=== PATIENT | female | born 1965 | race Caucasian/White ===

== ENCOUNTER → 2018-11-21 | Outpatient (CLI) | payer OTHER ==
--- NOTE | 2018-11-22 14:51 | RADIOLOGY REPORT (SQ) ---
EXAM DESCRIPTION: MRI HEAD COMBO COMPLETED DATE/TIME: 11/21/2018 5:49 pm REASON FOR STUDY: C71.9 MALIGNANT NEOPLASM OF BRAIN, UNSPECIFIED C71.9 MALIGNANT NEOPLASM OF BRAIN, UNSPECIFIED COMPARISON: Outside MRI images and radiology reports from 10/02/2017, 07/04/2018 in [facility]. TECHNIQUE: Multiplanar imaging includes noncontrasted T1, T2, FLAIR, diffusion with ADC map and post gadolinium contrast T1 sequences. Images stored on PACS. CONTRAST TYPE AND DOSE: 20 mL Dotarem. RENAL FUNCTION: Not needed. LIMITATIONS: None. FINDINGS: ANATOMY: No anomalies. Normal vascular flow voids. Pituitary fossa normal. CSF SPACES: Normal in size and contour. No hemorrhage. CEREBRUM: Extensive FLAIR and T2 hyperintense parenchymal edema in the right cerebrum. This involves the frontal, parietal, occipital and temporal lobes with extension across the posterior corpus callo sum into the left high parietal region. This has progressed when compared to the most recent prior s tudy. Progressive heterogeneously enhancing mass in the midst of the edema, main component measuring up to 5 x 2.6 x 4.8 cm AP by transverse by craniocaudal dimension. This is contiguous with abnormal enhancing tissue extending across the corpus callosum. There is mass effect on the right lateral ve ntricle with slight right to left shift on the order of 5 mm or so. POSTERIOR FOSSA: No signal alteration. No hemorrhage. No edema, masses, or mass effect. Internal roman tory canals, cerebellopontine angles, mastoids normal. No enhancing lesions. No abnormal enhancement post contrast. DIFFUSION IMAGING: Negative for acute or subacute infarction. ORBITS: No masses. Globes normal. PARANASAL SINUSES: No fluid levels. Mucosa normal. OTHER: No other significant finding. IMPRESSION: 1. Progression of disease. Right cerebral mass has enlarged. As before, there is extension across t he midline via the posterior corpus callosum. There is much more extensive regional cerebral edema c ompared to September. Associated regional mass effect with slight right to left shift also now noted. EVIDENCE OF ACUTE STROKE: NO. TECHNICAL DOCUMENTATION: JOB ID: [id number] 2010 [employer]- All Rights Reserved Reading location - IP/workstation name: [email or web address]
== END ==
LOC: RAD 16:17
PROVIDERS: ATTEND Physician Assistant
DX: C71.8 Malignant neoplasm of overlapping sites of brain (principal)
CPT/HCPCS: 70553; 82565

== ENCOUNTER → 2019-05-03 | Outpatient (CLI) | payer OTHER ==
--- NOTE | 2019-05-04 08:50 | RADIOLOGY REPORT (SQ) ---
EXAM DESCRIPTION: MRI HEAD COMBO COMPLETED DATE/TIME: 05/03/2019 3:41 pm REASON FOR STUDY: MALIGNANT NEOPLASM OF BRAIN, UNSPEC (C71.9) C71.9 MALIGNANT NEOPLASM OF BRAIN, UN SPECIFIED COMPARISON: 12/26/2018 TECHNIQUE: Multiplanar imaging includes noncontrasted T1, T2, FLAIR, diffusion with ADC map and post gadolinium contrast T1 sequences. Images stored on PACS. CONTRAST TYPE AND DOSE: 10 mL Dotarem. RENAL FUNCTION: Not indicated. ACR Type II contrast agent associated with few, if any, unconfounded cases of NSF LIMITATIONS: None. FINDINGS: There has been interval progression of tumor adjacent to right occipital craniotomy. Shalini ins are less distinct than on the prior and there has been spread of tumor into the splenium of the c orpus callosum best demonstrated on series 11, image 20. Tumor crosses the midline into the left occ ipital deep white matter. Maximum diameter approximately 5.8 x 6.6 craniocaudal by transverse diamet er. Maximum AP diameter approximately 4.7 cm. There is associated mild vasogenic and cytotoxic natalee a. No hemorrhage or midline shift. New satellite lesion measuring just under 10 mm maximum diameter right frontal lobe abutting the falx series 11, image 11. Posterior fossa is unremarkable. IMPRESSION: Spread of tumor from right occipital lobe into the corpus callosum and contralateral lorrie p white matter. New satellite lesion in the right frontal lobe. EVIDENCE OF ACUTE STROKE: NO. TECHNICAL DOCUMENTATION: JOB ID: [id number] 2010 [employer]- All Rights Reserved Reading location - IP/workstation name: [email or web address]
== END ==
LOC: RAD 13:19
PROVIDERS: ATTEND Nurse Practitioner Family
DX: C71.9 Malignant neoplasm of brain, unspecified (principal)
CPT/HCPCS: 82565; 70553; A9576

== ENCOUNTER 2019-06-29 17:44 | Emergency (ER) | payer OTHER ==
--- NOTE | 2019-06-29 18:23 | ER Document Report ---
ED Medical Screen (RME) - General Chief Complaint: Fall Injury Stated Complaint: FALL/STOMACH PAIN Primary Care Provider: MORALES SHAVER FNP-C [Primary Care Provider] - Follow up as needed Notes: Patient is a 54-year-old white female with a history of brain cancer, sent here by Dr. Kenneth woodson for bruising to the abdomen after a fall. The patient cannot recall when the fall was but states that she knows she fell on the kitchen floor landing on her abdomen. She states she is developed bruising along the anterior lower abdomen and the abdomen is tender. She denies any vomiting or diarrhea. No known head injuries or neck pain. She denies any blood thinning medications. Dr. Kenneth woodson sent her here for CT scan of the abdomen and pelvis. I have treated and performed a rapid initial assessment of this patient. A comprehensive ED assessment and evaluation of the patient, analysis of test results and completion of medical decision making process will be conducted by additional ED providers. PHYSICAL EXAMINATION: GENERAL: Well-appearing, well-nourished and in no acute distress. A&Ox4. Answers questions appropriately. TRAVEL OUTSIDE OF THE [place] IN LAST 30 DAYS: No - Related Data Allergies/Adverse Reactions: No Known Allergies Allergy (Verified 06/29/19 18:05) Home Medications: pantoprazole. ondansetron. loperamide. nystatin. ox ycodone/acetaminophen. dronabinol. dexamethasone. hydrocortisone. simvastatin. lorazepam. levothyroxine. diazepam. tylenol. venlafaxine Past Medical History - Social History Chew tobacco use (# tins/day): No Frequency of alcohol use: None Drug Abuse: None - Past Medical History Cardiac Medical History: Reports: Hx Hypercholesterolemia, Hx Hypertension Denies: Hx Coronary Artery Disease, Hx Heart Attack Pulmonary Medical History: Denies: Hx Asthma, Hx Bronchitis, Hx COPD, Hx Pneumonia Neurological Medical History: Denies: Hx Cerebrovascular Accident, Hx Seizures Musculoskeltal Medical History: Reports Hx Arthritis - right arm and right leg Psychiatric Medical History: Reports: Hx Anxiety, Hx Depression Past Surgical History: Reports: Hx Section, Hx Hysterectomy - Immunizations Hx Diphtheria, Pertussis, Tetanus Vaccination: Yes Physical Exam - Vital signs Vitals: Temp Pulse Resp BP Pulse Ox 97.9 F 114 H 20 137/99 H 97 06/29/19 17:50 06/29/19 17:50 06/29/19 17:50 06/29/19 17:50 06/29/19 17:50 Course - Vital Signs Vital signs: Temp Pulse Resp BP Pulse Ox 97.9 F 114 H 20 137/99 H 97 06/29/19 17:50 06/29/19 17:50 06/29/19 17:50 06/29/19 17:50 06/29/19 17:50 Doctor's Discharge - Discharge Referrals: MORALES SHAVER FNP-C [Primary Care Provider] - Follow up as needed
[2019-06-29] MEDS ORDERED: NORMAL SALINE 500 ML IV ONE (18:53)
[2019-06-29 21:27] LABS: ABSOLUTE LYMPHOCYTES (AUTO) 0.8 10^3/uL (0.5-4.7); ABSOLUTE MONOCYTES (AUTO) 0.4 10^3/uL (0.1-1.4); ABSOLUTE NEUT (AUTO) 9.2 10^3/uL (1.7-8.2); BASOPHILS % (AUTO) 0.2 % (0-2); EOSINOPHILS % (AUTO) 0.1 % (0-6); HEMATOCRIT 41.5 % (36.0-47.0); HEMOGLOBIN 14.9 g/dL (12.0-15.5); LYMPHOCYTES % (AUTO) 7.3 % (13-45); MEAN CORPUSCULAR HEMOGLOBIN 34.5 pg (27.0-33.4); MEAN CORPUSCULAR HGB CONC 35.9 g/dL (32.0-36.0); MEAN CORPUSCULAR VOLUME 96 fl (80-97); MONOCYTES % (AUTO) 3.9 % (3-13); RED BLOOD COUNT 4.32 10^6/uL (3.72-5.28); RED CELL DISTRIBUTION WIDTH 14.9 % (11.5-14.0); SEGMENTED NEUTROPHILS % (AUTO) 88.5 % (42-78); TOTAL CELLS COUNTED % (AUTO) 100 %; WHITE BLOOD COUNT 10.3 10^3/uL (4.0-10.5)
[2019-06-29 21:31] LABS: ALBUMIN 3.7 g/dL (3.5-5.0); ALKALINE PHOSPHATASE 71 U/L (38-126); ANION GAP 6 (5-19); ASPARTATE AMINO TRANSFERASE 20 U/L (14-36); BILIRUBIN,TOTAL 0.8 mg/dL (0.2-1.3); BLOOD UREA NITROGEN 15 mg/dL (7-20); CALCIUM 8.8 mg/dL (8.4-10.2); CARBON DIOXIDE 26 mmol/L (22-30); CHLORIDE 101 mmol/L (98-107); GLUCOSE 91 mg/dL (75-110); POTASSIUM 3.5 mmol/L (3.6-5.0); TOTAL PROTEIN 5.9 g/dL (6.3-8.2)
[2019-06-29 21:56] LABS: PLATELET COUNT 86 10^3/uL (150-450)
[2019-06-29] MEDS ORDERED: FAMOTIDINE INJ/PF 20 MG/2 ML SDV IV ONE (21:57)
[2019-06-29] MEDS ORDERED: DIPHENHYDRAMINE HCL 50 MG/ML VIAL ONE (21:57)
[2019-06-29] MEDS ORDERED: METHYLPREDNISOLONE INJ 125 MG/2 ML SDV ONE (21:57)
[2019-06-29 22:17] VITALS: BP 134/99
--- NOTE | 2019-06-29 22:50 | RADIOLOGY REPORT (SQ) ---
EXAM DESCRIPTION: Contrast enhanced CT of the abdomen and pelvis. CLINICAL HISTORY: 54 years Female on thinner, abd pain, bruising COMPARISON: None. TECHNIQUE: Contiguous axial images obtained through the abdomen and pelvis following IV contrast. 67 mL Omnipaque 350 IV. Reformatted images obtained. NOTE: Delayed phase imaging was not acquired because technologist noted presence of anaphylactic reaction. This should be noted for future imaging studies. This exam was performed according to our department optimization program which includes automated exposure control, adjustment of the mA and/or kv according to patient size and/or use of iterative reconstruction technique. FINDINGS: Visualized lung bases demonstrate mild atelectatic changes. The liver appears unremarkable. The spleen and pancreas appear unremarkable. A small splenule is incidentally noted. There are bilateral adrenal gland lesions measuring up to 1.2 cm on the right and up to 1.4 cm on the left. Subcentimeter left renal low-density lesion is too small to characterize, statistically likely to represent a cyst. There is no evidence of nephrolithiasis. No hydronephrosis. The gallbladder is visualized. No aneurysmal dilatation of the aorta. No bowel obstruction. There are scattered colonic diverticula without focal inflammatory changes to indicate acute diverticulitis. The appendix is unremarkable. No significant free fluid noted. No suspicious lytic or blastic osseous lesions are identified. The uterus is surgically absent. There is mild asymmetric enlargement of the right rectus sheath compared with the left side (sequence three image 35). In the setting of trauma, the possibility of small soft tissue injury is not excluded. IMPRESSION: 1. Mild asymmetric enlargement of the right rectus sheath compared with the left side. In the setting of trauma, the possibility of focal soft tissue injury is not excluded. 2. Bilateral adrenal gland lesions are probably benign in nature. Consider follow-up evaluation in 12 months.
--- NOTE | 2019-07-02 09:56 | ER Document Report ---
Entered by YOLA WHITNEY SCRIBE 06/29/19 [id number] Acting as scribe for:TORIE FRAGOSO MD ED General - General Information source: Patient, Relative TRAVEL OUTSIDE OF THE [place] IN LAST 30 DAYS: No - Related Data Home Medications: pantoprazole. ondansetron. loperamide. nystatin. oxycodone/acetaminophen. dronabinol. dexamethasone. hydrocortisone. simvastatin. lorazepam. levothyroxine. diazepam. tylenol. venlafaxine <TORIE FRAGOSO - Last Filed: 06/29/19 20:36> <DAVID BABIN IV - Last Filed: 06/30/19 00:05> - General Chief Complaint: Fall Injury Stated Complaint: FALL/STOMACH PAIN Time Seen by Provider: 06/29/19 18:36 Primary Care Provider: MORALES SHAVER FNP-C [NO LOCAL MD] - Follow up as needed Notes: This 54 year old female patient presents to the emergency department today with abdominal pain from a fall x3 weeks ago. Patient states she has fallen x2 times the past few weeks. Patient states she can not walk without assistance. [facility] called and gave the patient's history. states she has had a CT done for her head already and was sent to the ED today by her Doctor to have a CT done on her abdomen. states she has brain cancer and has a appointment in x3 days at [facility] with her Doctor. states the left side of her body is weak. Patient denies a headache. Patient states her last bowel movement was this morning and there was some straining, but she usually has constipation. (TORIE FRAGOSO) - Related Data Allergies/Adverse Reactions: Iodinated Contrast Media Adverse Reaction (Severe, Verified 06/29/19 22:05) Anaphylaxis Past Medical History - General Information source: Patient, Relative - Social History Smoking Status: Current Every Day Smoker Cigarette use (# per day): Yes - 1/2 pack per day Chew tobacco use (# tins/day): No Frequency of alcohol use: None Drug Abuse: None Lives with: Spouse/Significant other Family History: Reviewed & Not Pertinent Patient has suicidal ideation: No Patient has homicidal ideation: No - Past Medical History Cardiac Medical History: Reports: Hx Hypercholesterolemia, Hx Hypertension Malignancy Medical History: Reports: Hx Brain Cancer Musculoskeletal Medical History: Reports Hx Arthritis - right arm and right leg Psychiatric Medical History: Reports: Hx Anxiety, Hx Depression Past Surgical History: Reports: Hx Section, Hx Hysterectomy - Immunizations Hx Diphtheria, Pertussis, Tetanus Vaccination: Yes <TORIE FRAGOSO - Last Filed: 06/29/19 20:36> Review of Systems - Review of Systems Constitutional: No symptoms reported EENT: No symptoms reported Cardiovascular: No symptoms reported Respiratory: No symptoms reported Gastrointestinal: See HPI, Abdominal pain Genitourinary: No symptoms reported Female Genitourinary: No symptoms reported Musculoskeletal: No symptoms reported Skin: No symptoms reported Hematologic/Lymphatic: No symptoms reported Neurological/Psychological: See HPI. denies: Headaches -: Yes All other systems reviewed and negative <TORIE FRAGOSO - Last Filed: 06/29/19 20:36> Physical Exam - General General appearance: Appears well, Alert - HEENT Head: Normocephalic, Atraumatic Eyes: Normal Pupils: PERRL - Respiratory Respiratory status: No respiratory distress Chest status: Nontender Breath sounds: Normal Chest palpation: Normal - Cardiovascular Rhythm: Regular Heart sounds: Normal auscultation, S1 appreciated, S2 appreciated Murmur: No - Abdominal Inspection: Other - Macular ecchymosis on the periumbilical region. Distension: No distension Bowel sounds: Normal Tenderness: No: Guarding, Rebound - Extremities General upper extremity: Normal inspection. No: Edema General lower extremity: Normal inspection. No: Edema - Neurological Neuro grossly intact: Yes Cognition: Other - Poor historian. Orientation: AAOx4 Speech: Normal Motor strength normal: RUE, RLE - Psychological Associated symptoms: Normal affect, Normal mood - Skin Skin Temperature: Warm Skin Moisture: Dry Skin Color: Normal <TORIE FRAGOSO - Last Filed: 06/29/19 20:36> - Vital signs Vitals: Temp Pulse Resp BP Pulse Ox 97.9 F 114 H 20 137/99 H 97 06/29/19 17:50 06/29/19 17:50 06/29/19 17:50 06/29/19 17:50 06/29/19 17:50 - Neurological Notes: Weakness in the left side of her body. (TORIE FRAGOSO) Course - Transfer of Care Care transferred to following provider: Care transferred to Dr. babin <TORIE FRAGOSO - Last Filed: 06/29/19 20:36> - Laboratory Result Diagrams: 06/29/19 20:55 06/29/19 20:55 - Diagnostic Test Radiology reviewed: Reports reviewed - Consults dr. sharif Time consulted: 00:01 - Dr. sharif agrees with plan to discharge patient home and follow-up with him as an outpatient on 07/02/2019 Consulted provider: follow-up in office <DAVID BABIN IV - Last Filed: 06/30/19 00:05> - Re-evaluation Re-evalutation: 06/29/19 20:[address] scan abdomen and pelvis and its report regarding abdominal pain with a bruise noted in the midline suprapubic umbilical region. 06/29/19 20:36 Laboratories are still pending at this time as well. (TORIE FRAGOSO) 06/30/19 00:00 Results of ED MSE discussed with patient. All questions were answered prior to discharge. Emergency signs and symptoms, reasons to return to the emergency department discussed with patient. (DAVID BABIN IV) - Vital Signs Vital signs: Temp Pulse Resp BP Pulse Ox 98.4 F 114 H 12 134/99 H 99 06/29/19 19:49 06/29/19 17:50 06/29/19 22:11 06/29/19 22:11 06/29/19 22:11 - Laboratory Laboratory results interpreted by me: 06/29/19 06/29/19 20:55 20:55 MCH 34.5 H RDW 14.9 H Plt Count 86 L Lymph % (Auto) 7.3 L Absolute Neuts (auto) 9.2 H Seg Neutrophils % 88.5 H Sodium 132.8 L Potassium 3.5 L Total Protein 5.9 L - Consults dr. sharif Reason for consultation: 06/30/19 00:01 Patient sent in for evaluation of abdominal pain (DAVID BABIN IV) Discharge <TORIE FRAGOSO - Last Filed: 06/29/19 20:36> <DAVID BABIN IV - Last Filed: 06/30/19 00:05> - Discharge Clinical Impression: Abdominal pain due to injury Rectus sheath hematoma Qualifiers: Encounter type: initial encounter Qualified Code(s): S30.1XXA - Contusion of abdominal wall, initial encounter Condition: Good Disposition: HOME, SELF-CARE Additional Instructions: Return to the Emergency Department without delay if any worse. You have a collection of bruising and blood within the layers of your front abdominal camacho. There does not appear to be any actual internal bleeding involving your organs. The blood should be resorbed by the body over time. Contact Dr. Sharif on 07/02/2019 and follow-up with him as directed. HOME CARE INSTRUCTIONS & INFORMATION: Thank you for choosing us for your me dical needs. We hope you're satisfied with the care you received. After you leave, you must properly care for your problem and, at the same time, observe its progress. Any condition can change. Some illnesses can change rapidly over hours or days. If your condition worsens, return to the Emergency Department or see your physician promptly. ABOUT YOUR X-RAYS AND EKG'S: If you had an EKG or X-rays taken, they have been read by the Emergency Physician. The X-rays and EKG's will also be read by a Radiologist or Hardwood Finisher within 24 hours. If discrepancies are noted, you will be notified by telephone. Please be certain the ED has a correct telephone number & address where you can be reached. Also, realize that some fractures or abnormalities do not show up on initial X-rays. If your symptoms continue, see your physician. ABOUT YOUR LABORATORY TEST: If you had laboratory tests, the results have been reviewed by the Emergency Physician. Some test results (for example cultures) may not be available for several days. You will be contacted if any test result shows you need additional treatment. Please be certain the ED has a correct telephone number and address where you can be reached. ABOUT YOUR MEDICATIONS: You will receive instructions on how to take your medicine on the prescription label you receive. Additional information may be provided by the Pharmacy. If you have questions afterwards, call the ED for clarification or further instructions. Some prescribed medications may cause drowsiness. Do not perform tasks such as driving a car or operating machinery without consulting your Pharmacist. If you feel you need a refill of pain medication, your condition will need re-evaluation. Please do not call for a refill of any medication. ABOUT YOUR SIGNATURE: Signature of this document acknowledges to followin. Understanding that you received emergency treatment and that you may be released before al medical problems are known or treated. Please be certain the ED has a correct phone number & address where you can be reached. 2. Acknowledgement that you will arrange for follow-up care as recommended. 3. Authorization for the Emergency Physician to provide information to your follow-up Physician in order to maximize your care. AT ANY TIME, IF YOUR SYMPTOMS CHANGE SIGNIFICANTLY OR WORSEN OR YOU DEVELOP NEW SYMPTOMS, RETURN TO THE EMERGENCY DEPARTMENT IMMEDIATELY FOR RE-EVALUATION. OUR GOAL IS TO PROVIDE EXCELLENT MEDICAL CARE! WE HOPE THAT WE HAVE MET YOUR EXPECTATIONS DURING YOUR EMERGENCY DEPARTMENT VISIT AND THAT YOU FEEL YOU HAVE RECEIVED EXCELLENT CARE! Referrals: MORALES SHAVER FNP-C [NO LOCAL MD] - Follow up as needed ALAN SHARIF MD [ACTIVE STAFF] - 07/02/19 (Call on 07/02/2019 to arrange follow-up appointment.) I personally performed the services described in the documentation, reviewed and edited the documentation which was dictated to the scribe in my presence, and it accurately records my words and actions.
== END 2019-06-30 00:58 | disposition home or self-care (01) ==
LOC: ER 17:44
DX: S30.1XXA Contusion of abdominal wall, initial encounter (principal); R10.9 Unspecified abdominal pain; W19.XXXA Unspecified fall, initial encounter; Z91.81 History of falling; F17.210 Nicotine dependence, cigarettes, uncomplicated; I10 Essential (primary) hypertension
CPT/HCPCS: 99284; 96361; 96374; 96375; 36415; 85025; 80053; 74177; J1200; J2930; J7040; S0028

== ENCOUNTER → 2019-07-02 | Outpatient (CLI) | payer OTHER ==
--- NOTE | 2019-07-02 12:42 | RADIOLOGY REPORT (SQ) ---
EXAM DESCRIPTION: MRI HEAD COMBO IMAGES COMPLETED DATE/TIME: 07/02/2019 12:06 pm REASON FOR STUDY: C71.9 MALIGNANT NEOPLASM OF BRAIN, UNSPECIFIED C71.9 MALIGNANT NEOPLASM OF BRAIN, UNSPECIFIED COMPARISON: 05/03/2019 MRI, 12/26/2018 TECHNIQUE: Multiplanar imaging includes noncontrasted T1, T2, FLAIR, diffusion with ADC map and post gadolinium contrast T1 sequences. Images stored on PACS. CONTRAST TYPE AND DOSE: 15 mL Dotarem. RENAL FUNCTION: Not indicated. ACR Type II contrast agent associated with few, if any, unconfounded cases of NSF LIMITATIONS: None. FINDINGS: CSF SPACES: Mild local sulcal effacement on the right and effacement of the right lateral ventricular system. CEREBRUM: Mild interval increase in size of the predominantly right occipital lobe heterogeneously en hancing mass which extends across midline and involves the left lobe. The lesion measures approximat adelita 7.3 x 6.1 cm in maximal conglomerate (series 1402, image 32), previously 6.6 x 5.8 cm. The right occipital component demonstrates decreased central enhancement suggestive of necrosis. Residual het erogeneous enhancement within the midline and left occipital component. There is increased confluent FLAIR signal abnormality predominantly involving the right frontal parietooccipital and temporal lob es compatible with edema. Additional nonspecific periventricular and subcortical areas of FLAIR sign al hyperintensity, likely sequelae of microangiopathic disease. There is mild interval increase in s ize of the additional right paramedian frontal lobe satellite lesions measuring 14 mm (series 12, fred ge 11), previously 1.0 cm). Additional more anterior right frontal lobe paramedian lesion also demon strates increased size measuring 11 mm (series 12, image 9), previously 6 mm. There is local mass ef fect with sulcal effacement and approximately 6 mm of [id number] midline shift, increased from amanda or. Basal cisterns remain patent. POSTERIOR FOSSA: No signal alteration. No hemorrhage. No edema, masses, or mass effect. Internal roman tory canals, cerebellopontine angles, mastoids normal. No enhancing lesions. No abnormal enhancement post contrast. DIFFUSION IMAGING: Diffusion signal abnormality corresponding to the previously described multifocal mass lesions. No additional areas of abnormal diffusion signal suggestive of acute infarct. ORBITS: No masses. Globes normal. PARANASAL SINUSES: No fluid levels. Mucosa normal. OTHER: Evidence of prior occipital craniotomy. IMPRESSION: 1. Mild interval increase in size of the dominant occipital lesion as detailed above. Decreased central enhancement involving the right occipital component suggestive of necrosis. 2. Interval increase in size of the additional paramedian right frontal lobe satellite lesions as de tailed above. 3. Mildly increased confluent FLAIR signal hyperintensity compatible with vasogenic edema. Mildly i ncrease local mass effect with approximately 6 mm of right to left midline shift. EVIDENCE OF ACUTE STROKE: NO. TECHNICAL DOCUMENTATION: JOB ID: [id number] 2010 [employer]- All Rights Reserved Reading location - IP/workstation name: [email or web address]
== END ==
LOC: RAD 11:08
PROVIDERS: ATTEND Nurse Practitioner Family
DX: C71.9 Malignant neoplasm of brain, unspecified (principal)
CPT/HCPCS: 70553; A9576